=== PATIENT | male | born 1930 | race Asian ===

== ENCOUNTER 2020-06-28 18:35 | Inpatient (IN) | payer MEDICARE, BC ==
[~2020-06-28] VITALS: Ht 165.1 cm; Wt 77.5 kg
[~2020-06-28 18:35] MED LIST: 00186-0370-20 IH; CARDIZEM CD 24240 MG PO; CARDURA4 MG PO; HCTZ 25MG TAB25 MG PO; PRILOSEC 20MG20 MG PO; PROVENTIL0.09 MG/A1 IH; RT SPIRIVA18 MCG IH; SINGULAIR 110 MG/TAB PO; VESICARE10 MG PO
[2020-06-28 19:14] LABS: BASO # 0.1 (0.0-0.2); EOS # 0.5 (0.0-0.7); EOS % 7.1 % (0-4.0); GRAN # 4.9 (1.4-6.5); GRAN % 70.6 % (42.2-75.2); HEMATOCRIT 37.9 % (42.0-52.0); HEMOGLOBIN 12.3 g/dl (13.5-18.0); LYMPH % 13.9 % (20.0-51.0); MEAN CELL VOLUME 93 fl (80.0-100.0); MEAN CORPUSCULAR HEMOGLOBIN 30 pg (27.0-31.0); MEAN CORPUSCULAR HGB CONC 33 g/dl (33.0-37.0); MEAN PLATELET VOLUME 9.1 fl (7.4-10.4); MONO # 0.5 (0.1-0.6); MONO % 7.1 % (1.7-9.3); PLATELET COUNT 257 K/mm3 (130-400); RED BLOOD COUNT 4.08 M/mm3 (4.20-5.60); REDCELL DISTRIBUTION WIDTH-CV 13.2 % (11.5-14.5)
[2020-06-28 19:22] LABS: ALANINE AMINOTRANSFERASE 10 U/L (4-49); ALBUMIN 3.9 gm/dL (3.5-5.0); ALKALINE PHOSPHATASE 68 U/L (50-136); ANION GAP 10 mmol/L (7-16); AST,SGOT 19 U/L (15-37); BILIRUBIN,TOTAL 0.7 mg/dL (0.0-1.0); BLOOD UREA NITROGEN 11 mg/dL (9-20); CALCIUM 8.6 mg/dL (8.4-10.2); CARBON DIOXIDE 27 mmol/L (22-30); CHLORIDE 100 mmol/L (98-107); CREATININE, serum 1.21 (0.66-1.25); GLUCOSE 114 mg/dL (74-106); POTASSIUM 3.7 mmol/L (3.4-5.0); SODIUM 137 mmol/L (137-145); TOTAL PROTEIN 7.6 gm/dL (6.4-8.2)
[2020-06-28 19:35] LABS: TROPONIN-I < 0.012 ng/mL (0.000-0.035)
[2020-06-28] MEDS ORDERED: PRILOSEC 20MG20 MG PO (20:31)
[2020-06-28] MEDS ORDERED: SPIRIVA RESPIMAT4 GM IH (20:31)
[2020-06-28] MEDS ORDERED: DETROL LA4 PO (20:33)
[2020-06-29 05:15] VITALS: BP 146/83; PULSE 88; TEMP 98.9
--- NOTE | 2020-06-29 05:30 | NUR ---
Received patient via stretcher from ED. Patient is awake, alert and oriented. He is on O2 at 2lpm via NC. He has INT on his left AC. He denies pain. Provided patient with urinal and water. Instructed patient on his diet including fluid restriction of 1500ml. Patient verbalized understanding. He denies using any assistive device at home. Yoshi GRIGGS informed me that patient has $144 that he wants to put in safety deposit box. Informed Molly transformer assembly supervisor. Let patient sign on the envelope and counted the money in front of him. Call light within reach.
[2020-06-29 08:14] VITALS: BP 136/87; PULSE 78; TEMP 98.5
--- NOTE | 2020-06-29 10:53 | NUR ---
The patient is positive for COVID. SW contacted the patient's personal phone to complete intake. The patient lives alone in [place]. He states that his daughter, Ngozi (ph#[phone]), lives in [place]. He reports independence with ADLs and has a cane and walker. The patient's PCP is Dr. Suzi Ramirez and he receives his medications from [facility]. He reports no difficulties obtaining his meds. The patient does not have a DPOA-HC. He states that he is and that he has one biological daughter, Ngozi, and two adopted children. The patient plans to return home upon discharge. He states that he may need transportation back home. CLARISSA then contacted and reviewed the above information with the patient's daughter, Ngozi. Ngozi reports that the patient is very independent. She did not have any questions or concerns for SW at this time. SW to continue to follow.
--- NOTE | 2020-06-29 11:01 | NUR ---
Patient is alert and oriented, denies any pain. Patient have good appetite for food. Completed history and physical with patient this am. Updated daughter, Ngozi. Patient have no further concern or questlion at this time.
[2020-06-29 12:22] VITALS: BP 143/78; PULSE 73; TEMP 98.3
[2020-06-29 17:09] VITALS: BP 163/92; PULSE 70; TEMP 98.4
--- NOTE | 2020-06-29 20:00 | NUR ---
Assessment complete. Patient wears 2 liters of oxygen and shows no sign of increased work of breathing. He complains of an earache, for which he takes eardrops for at home. Contacted Tania Hyman and no additional orders obtained. PRN Tylenol administered for ear pain. Inspiratory wheezes are auscultated in patient's right lung rojas. Call light in reach and bed alarm on. Will continue to monitor.
[2020-06-29 21:13] VITALS: BP 147/75; PULSE 76; TEMP 98.1
[2020-06-30] VITALS (9 sets, daily range): BP systolic 137–158; BP diastolic 70–86; PULSE 60–70; TEMP 97–98.3
[2020-06-30 01:52] LABS: C-REACTIVE PROTEIN 0.5 mg/dL (0.0-0.9)
--- NOTE | 2020-06-30 02:39 | NUR ---
This RN contacted per telemetry at this time; Patient starting to throw occassional PVC's and PJC's. Upon patient assessment, patient is resting comfortably. Vital signs stable. Tania Hyman notified. Will continue to monitor.
[2020-06-30 03:00] LABS: BASO % 0.2 % (0.0-2.0); GRAN # 4.7 (1.4-6.5); GRAN % 83.1 % (42.2-75.2); HEMOGLOBIN 11.4 g/dl (13.5-18.0); LYMPH # 0.6 (1.2-3.4); LYMPH % 10.8 % (20.0-51.0); MEAN CELL VOLUME 94 fl (80.0-100.0); MEAN CORPUSCULAR HEMOGLOBIN 30 pg (27.0-31.0); MEAN CORPUSCULAR HGB CONC 32 g/dl (33.0-37.0); MEAN PLATELET VOLUME 9.8 fl (7.4-10.4); MONO # 0.3 (0.1-0.6); MONO % 5.7 % (1.7-9.3); PLATELET COUNT 231 K/mm3 (130-400); RED BLOOD COUNT 3.76 M/mm3 (4.20-5.60); REDCELL DISTRIBUTION WIDTH-CV 13.2 % (11.5-14.5)
[2020-06-30 03:03] LABS: HEMATOCRIT 35.5 % (42.0-52.0)
[2020-06-30 03:06] LABS: CALCIUM 8.3 mg/dL (8.4-10.2); CREATININE, serum 0.94 (0.66-1.25); MAGNESIUM 2.1 mg/dL (1.6-2.3); POTASSIUM 3.8 mmol/L (3.4-5.0)
--- NOTE | 2020-06-30 12:37 | NUR ---
Physical therapy order was put in for patient's funtionality strengthening. Patient agree he needs physical therapy.
--- NOTE | 2020-06-30 14:53 | NUR ---
RN updated patient's daughter Ngozi.
--- NOTE | 2020-06-30 19:20 | NUR ---
Received report from [facility]. Seen patient awake in bed. He is on O2 at 2lpm via NC. With INT on left AC. Call light within reach.
--- NOTE | 2020-06-30 19:34 | NUR ---
Patient alert and oriented. patient complained of earache, eardrop ordered per patient request. on 2L o2. patient does not have any further concern or question at this time.
--- NOTE | 2020-06-30 23:20 | NUR ---
[facility] the [facility].
[2020-07-01 00:10] VITALS: BP 142/72; PULSE 62; TEMP 98.4
[2020-07-01 03:28] VITALS: BP 151/85; PULSE 68; TEMP 98.1
[2020-07-01 06:26] LABS: BASO % 0.1 % (0.0-2.0); GRAN # 6.2 (1.4-6.5); HEMATOCRIT 38.5 % (42.0-52.0); HEMOGLOBIN 12.4 g/dl (13.5-18.0); LYMPH # 0.7 (1.2-3.4); LYMPH % 9.2 % (20.0-51.0); MEAN CELL VOLUME 94 fl (80.0-100.0); MEAN CORPUSCULAR HEMOGLOBIN 30 pg (27.0-31.0); MEAN CORPUSCULAR HGB CONC 32 g/dl (33.0-37.0); MEAN PLATELET VOLUME 9.6 fl (7.4-10.4); MONO # 0.5 (0.1-0.6); MONO % 6.6 % (1.7-9.3); PLATELET COUNT 235 K/mm3 (130-400); RED BLOOD COUNT 4.09 M/mm3 (4.20-5.60); REDCELL DISTRIBUTION WIDTH-CV 13.2 % (11.5-14.5)
--- NOTE | 2020-07-01 06:34 | NUR ---
Patient had uneventful night. Ear drops was given late last night. No other complains noted.
[2020-07-01 06:37] LABS: CALCIUM 8.6 mg/dL (8.4-10.2); CREATININE, serum 0.95 (0.66-1.25)
--- NOTE | 2020-07-01 07:00 | NUR ---
Report received from KEMI Triana. will resume care
[2020-07-01 08:49] VITALS: BP 142/82; PULSE 73; TEMP 97.3
--- NOTE | 2020-07-01 11:04 | NUR ---
Assessment charted. PT feeling well, up to urinate and call alarm off, able to stand well, steady. Urine nora andclear. 02 at 2L NC. Denies pain. INT to L A/C. Will continue to monitor.
[2020-07-01] MEDS ORDERED: DECADRON6 MG PO (12:33)
[2020-07-01] MEDS ORDERED: ROBITUSSIN100 MG/5 M PO (12:33)
[2020-07-01] MEDS ORDERED: OXYGEN NASAL.CANN (12:38)
--- NOTE | 2020-07-01 14:45 | NUR ---
PT is recommending home health. An exercise oximetry was ordered and the patient qualified for 1 liter of oxygen. SW contacted the patient to discuss home health and the need for oxygen. The patient was interested in home health and was agreeable to home health from [facility]. CLARISSA contacted and faxed a referral to Monie at [facility]. Monie reports that they are able to accept the patient for services. SW informed the patient. The patient was also agreeable to get home oxygen from [facility]. CLARISSA contacted and emailed the oxygen order to Jenna at [facility]. Awaiting delivery of oxygen. The patient states his vehicle is at [employer] and that he has no way to get there. CLARISSA contacted Chago at [facility]. Chago reports that they are unable to bring the patient to his vehicle, it has to be medically necessary. CLARISSA contacted and updated the patient's daughter, Ngozi. Ngozi reports that she lives in [place] and does not feel comfortable picking him up, since he is positive. She states that she does not really want to obtain his car keys and then bring the patient's vehicle here, for him to drive home. Ngozi states that she will figure it out and see if someone who has or had COVID can come pick him up. CLARISSA contacted Ayah at [facility] to see if they could transport. Ayah is checking with her team.
--- NOTE | 2020-07-01 15:21 | NUR ---
Ayah, at [facility], reports that they are unable to provide transportation. The patient then hit the call light and informed the community development worker that he found a ride. SW contacted the patient. The patient states that he is having his truck towed up to the hospital and that it will be arriving soon. Christa, at [facility], reports that their regional tanker truck driver is on the way up to hospital now to deliver the oxygen. CLARISSA updated the patient's RN. CLARISSA contacted and updated the patient's daughter, Ngozi. CLARISSA also read the IM form outloud to the patient over the phone. The patient verbalized understanding and gave SW aproval to sign the form on his behalf. No additional needs at this time.
--- NOTE | 2020-07-01 17:15 | NUR ---
Discharge teaching completed at this time. Pt received discharge packet, reviewed scripts, new meds sent to pharmacy, f/u appointments. Provided instructions on home oxygen per home 02 company and information packet given to marshal. Returned envelope from safe deposit. Assisted bringing tow truck keys to pt's car to be able to retreieve car and bring to the hospital. INT dc'd, tip itnact. PT in room on home concentrator at 1LNC. Awaiting return of towed vehicle. Will continue to monitor until arrival and then trnasport pt down via w/c with all belongings and with assistance of clean personnel to vehicle so the pt can trnapsort home. Criteria met
== END 2020-07-01 18:27 | disposition home or self-care (01) | DRG 177 ==
LOC: COL.ER 18:45 → MEDICAL 19:43
PROVIDERS: Emergency Medicine; Internal Medicine Infectious Disease; Student in an Organized Health Care Education/Training Program; ADMIT Internal Medicine
DX: U07.1 COVID-19 (principal); J96.01 Acute respiratory failure with hypoxia; J12.89 Other viral pneumonia; J44.0 Chronic obstructive pulmonary disease with (acute) lower respiratory infection; I10 Essential (primary) hypertension; K21.9 Gastro-esophageal reflux disease without esophagitis; D64.9 Anemia, unspecified; Z87.891 Personal history of nicotine dependence
CPT/HCPCS: 99223-AI; 99232-AI; 99233-AI; 99239; J0360; J0696; J1100; J1650; J7030; J8540

== ENCOUNTER → 2020-07-21 | Outpatient (CLI) | payer MEDICARE, BC ==
[~2020-07-21] MED LIST changes: +DECADRON6 MG PO; +DETROL LA4 PO; +OXYGEN NASAL.CANN; +ROBITUSSIN100 MG/5 M PO; +SPIRIVA RESPIMAT4 GM IH
== END ==
LOC: ZCOL.LAB 15:53
DX: M79.89 Other specified soft tissue disorders (principal)

== ENCOUNTER → 2020-07-22 | Outpatient (CLI) | payer MEDICARE, BC | LOC: COL.VAS 07:27 | DX: M79.661 Pain in right lower leg (principal); M79.89 Other specified soft tissue disorders ==